=== PATIENT | male | born 1950 | race Two or more races ===

== ENCOUNTER 2017-02-24 06:45 | Day surgery (SDC) | payer MEDICARE, BC ==
[2017-02-24] MEDS ORDERED: Dextrose 5%-Lactated Ringers 1,000 ML IV SCH (07:30)
[2017-02-24] MEDS ORDERED: fentaNYL 100 MCG/2 ML SDV ONE (07:49)
[2017-02-24] MEDS ORDERED: Propofol 200 MG/20 ML SDV ONE (07:49)
[2017-02-24] MEDS ORDERED: Midazolam 1 MG/ML 2 ML SDV ONE (07:49)
[2017-02-24 10:38] VITALS: BP 122/66
--- NOTE | 2017-03-06 13:38 | OR ---
DATE OF PROCEDURE: 02/24/2017 PREOPERATIVE DIAGNOSIS: Personal history of colon polyps. POSTOPERATIVE DIAGNOSIS: Normal colonoscopic examination. OPERATIVE PROCEDURE: Flexible colonoscopy. ANESTHESIA: IV sedation. INDICATION FOR PROCEDURE: A 66-year-old male presenting for a followup colonoscopy, has personal history of colon polyps and is to undergo a flexible colonoscopy with biopsies and/or polypectomy as indicated. Potential risks including bleeding and perforation were discussed, and the patient wishes to proceed. DETAILS OF PROCEDURE: The patient was taken to the operating room and placed in a left lateral decubitus position. IV sedation was administered, after which the initial digital rectal exam was performed and was unremarkable. Colonoscope was then passed into the rectum with retroflexion revealing uncomplicated hemorrhoidal columns. The scope was then eventually passed to the level of the cecum. The prep was quite good with there only being a small amount of liquid stool present to that level. No abnormalities noted, specifically no areas of diverticulosis. No areas of colitis and no polyps or other signs of neoplasia. The scope was then withdrawn, the above findings reconfirmed, and the procedure concluded. There were no evident complications. Due to the patient's personal history of colon polyps, colonoscopy should be undertaken in 5 years. El Michel MD /[id number]
== END 2017-02-24 10:45 | disposition home or self-care (01) ==
LOC: JP.SDS 06:45
PROVIDERS: ATTEND Surgery
DX: Z12.11 Encounter for screening for malignant neoplasm of colon (principal); Z86.010 Personal history of colon polyps; K21.9 Gastro-esophageal reflux disease without esophagitis; I25.10 Atherosclerotic heart disease of native coronary artery without angina pectoris; E11.22 Type 2 diabetes mellitus with diabetic chronic kidney disease; I12.9 Hypertensive chronic kidney disease with stage 1 through stage 4 chronic kidney disease, or unspecified chronic kidney disease; N18.9 Chronic kidney disease, unspecified; Z88.8 Allergy status to other drugs, medicaments and biological substances; J30.1 Allergic rhinitis due to pollen; Z91.09 Other allergy status, other than to drugs and biological substances
CPT/HCPCS: G0105; J2250; J2704; J3010; J7042

== ENCOUNTER 2019-12-30 18:01 | Emergency (ER) | payer MEDICARE ==
[2019-12-30] MEDS ORDERED: Acetaminophen/oxyCODONE 325-5 MG Tab PO STA (20:09)
[2019-12-30 20:15] VITALS: BP 163/90; PULSE 76
--- NOTE | 2019-12-30 20:16 | EDM.PDOC ---
ED HPI GENERAL MEDICAL PROBLEM - General Chief Complaint: Lower Extremity Injury/Pain Stated Complaint: HAD KNEE SURG MONDAY, IN PAIN Time Seen by Provider: 12/30/19 20:05 Source of Information: Reports: Patient, RN. Denies: Old Records History Limitations: Reports: Other (incomplete records) - History of Present Illness INITIAL COMMENTS - FREE TEXT/NARRATIVE: 69 yo male recently has arthroscopic R knee surgery in [place] by Dr. Rockwell. He is on Bucks for pain relief. Awoke from a nap late in the day today with increased pain and tried to call Dr. Rockwell but they were already gone. He lives here so they came here to the ER. He denies new injury or fever. Is here with his . His lasts Bucks was about 4.5 hrs ago. He has a walker at home and an KENJI wrap, but is not currently wearing the KENJI. He has tolerated Percocet in the past. Is on warfarin so not able to take NSAID's. Onset: Today Onset Date: 12/30/19 Duration: Hour(s):, Constant Location: Reports: Lower Extremity, Right Quality: Reports: Ache Severity: Moderate Improves with: Reports: Rest Worsens with: Reports: Movement Context: Reports: Other (recent surgery for ? meniscal tear) Associated Symptoms: Reports: No Other Symptoms Treatments BIOSTATISTICS DIRECTOR: Reports: Other (see below) (Bucks) Right Knee Pain Score (Numeric/FACES): 5 - Related Data Allergies Allergy/AdvReac Type Severity Reaction Status Date / Time enoxaparin sodium Allergy Cannot Verified 12/30/19 19:51 [From Lovenox] Remember magnesium hydroxide Allergy Cannot Verified 12/30/19 19:51 [From Milk of Magnesia] Remember DIAGNOSTIC X-RAY MATERIALS Allergy Cannot Uncoded 12/30/19 19:51 Remember pollen Allergy Cannot Uncoded 12/30/19 19:51 Remember Home Meds: Home Meds Insulin Glargine,Hum.Rec.Anlog [Lantus Solostar] 35 units SUBCNJ BEDTIME 11/11/12 [History] Metoprolol Tartrate [Lopressor] 25 mg PO BID 11/11/12 [History] Pravastatin Sodium 40 mg PO DAILY 11/11/12 [History] Tacrolimus [Prograf] 2 mg PO BEDTIME 11/11/12 [History] mycophenolate mofetiL [Cellcept] 500 mg PO BID 11/11/12 [History] predniSONE [Prednisone] 7.5 mg PO DAILY 11/11/12 [History] Calcium Carbonate/Vitamin D3 [Calcium 600 + Vit D 400] 200 - 600 mg PO ASDIRECTED 05/08/13 [History] Fish Oil/[place]-3 Fatty Acids [Fish Oil] 3,000 tab PO DAILY 05/08/13 [History] Magnesium Oxide [Magnesium] 800 mg PO TID 05/08/13 [History] Multivitamin [Multi-Vitamin Daily] 1 each PO DAILY 05/08/13 [History] Sulfamethoxazole/Trimethoprim [Bactrim 400-80 MG] 1 tab PO .3X/W 05/10/13 [History] Cholecalciferol (Vitamin D3) [Vitamin D3] 1,000 unit PO BID 02/22/17 [History] Insulin Lispro [HumaLOG] 3 - 5 units SUBCUT ASDIRECTED 02/22/17 [History] Ranitidine [Zantac] 150 mg PO BID 02/22/17 [History] Tacrolimus [Prograf] 1.5 mg PO .AM 02/22/17 [History] Warfarin [Coumadin] 2 mg PO ASDIRECTED 02/22/17 [History] Acetaminophen/HYDROcodone [Bucks 325-5 MG] 1 tab PO Q6H PRN 12/30/19 [History] Past Medical History HEENT History: Reports: Sinusitis Cardiovascular History: Reports: Afib, High Cholesterol, Hypertension, Other (See Below) Other Cardiovascular History: cardiac ablation Respiratory History: Reports: Other (See Below) Other Respiratory History: 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, according to patient Gastrointestinal History: Reports: Colon Polyp, GERD, Pancreatitis Musculoskeletal History: Reports: Fracture, Neck Pain, Chronic Endocrine/Metabolic History: Reports: Diabetes, Type II Hematologic History: Reports: Anticoagulation Therapy Immunologic History: Reports: Solid Organ Transplant Other Oncologic History: small skin cancer cut off on face - Infectious Disease History Infectious Disease History: Reports: Chicken Pox, Measles - Past Surgical History HEENT Surgical History: Reports: Cataract Surgery, Oral Surgery Cardiovascular Surgical History: Reports: None Respiratory Surgical History: Reports: Other (See Below) GI Surgical History: Reports: Cholecystectomy, Colonoscopy Endocrine Surgical History: Reports: None Other Musculoskeletal Surgeries/Procedures:: knee scope Social & Family History - Family History Family Medical History: Noncontributory - Tobacco Use Tobacco Use Status *Q: Never Tobacco User - Caffeine Use Caffeine Use: Reports: Coffee Other Caffeine Use: 4-6 cups a day - Recreational Drug Use Recreational Drug Use: No Review of Systems - Review of Systems Review Of Systems: See Below Constitutional: Reports: No Symptoms Musculoskeletal: Reports: Joint Pain (R knee) Skin: Reports: Bruising, Wound (surgical). Denies: Diaphoresis, Erythema Neurological: Reports: No Symptoms ED EXAM, GENERAL - Physical Exam Exam: See Below Exam Limited By: No Limitations General Appearance: Alert, WD/WN, No Apparent Distress Extremities: Pedal Edema (R knee swollen. Diffuse post-op bruising. No redness or increased warmth. Decreased ROM due to his swelling. ), Limited Range of Motion (due to swelling). No: Normal Inspection, Normal Range of Motion, Non- Tender, No Pedal Edema, Increased Warmth, Redness Neurological: Alert, Oriented, CN II-XII Intact, Normal Cognition, No Motor/Sensory Deficits Psychiatric: Normal Affect, Normal Mood Skin Exam: Warm, Dry, Intact, Normal Color, No Rash Course - Vital Signs Last Recorded V/S: Last Vital Signs Temp 36.6 C 12/30/19 20:14 Pulse 76 12/30/19 20:14 Resp 16 12/30/19 20:14 BP 163/90 H 12/30/19 20:14 Pulse Ox 93 L 12/30/19 20:14 - Orders/Labs/Meds Meds: Medications Discontinued Medications Generic Name Dose Route Start Last Admin Trade Name Aryaq PRN Reason Stop Dose Admin Oxycodone/Acetaminophen 2 tab 12/30/19 20:09 12/30/19 20:20 Percocet 325-5 Mg PO 12/30/19 20:10 2 tab ONETIME STA Administration - Re-Assessments/Exams Free Text/Narrative Re-Assessment/Exam: 12/30/19 20:59 Pain relieved enough that he is able to walk now with a walker in the ER. Departure - Departure Time of Disposition: 21:05 Disposition: Home, Self-Care 01 Condition: Fair Clinical Impression: Postoperative pain of knee - Discharge Information *PRESCRIPTION DRUG MONITORING PROGRAM REVIEWED*: No *COPY OF PRESCRIPTION DRUG MONITORING REPORT IN PATIENT JUSTIN: No Instructions: Acute Knee Pain, Adult, [id number] Referrals: PCP,None [Primary Care Provider] - Forms: ED Department Discharge Additional Instructions: Substitute Percocet for your Bucks until you can see Dr. Rockwell for follow up. Use your walker and KENJI wrap. Ice for comfort Sepsis Event Note (ED) - Focused Exam Vital Signs: Vital Signs Temp Pulse Resp BP Pulse Ox 12/30/19 20:14 36.6 C 76 16 163/90 H 93 L
== END 2019-12-30 21:15 | disposition home or self-care (01) ==
LOC: JP.ED 18:01
DX: G89.18 Other acute postprocedural pain (principal); M25.561 Pain in right knee; I10 Essential (primary) hypertension; I48.91 Unspecified atrial fibrillation; E78.00 Pure hypercholesterolemia, unspecified; K21.9 Gastro-esophageal reflux disease without esophagitis; E11.9 Type 2 diabetes mellitus without complications; Z79.4 Long term (current) use of insulin; Z88.8 Allergy status to other drugs, medicaments and biological substances; Z90.49 Acquired absence of other specified parts of digestive tract; Z79.899 Other long term (current) drug therapy
CPT/HCPCS: 99283; A9270

== ENCOUNTER 2020-01-04 12:59 | Emergency (ER) | payer MEDICARE ==
[2020-01-04 13:34] VITALS: BP 159/85; PULSE 73
--- NOTE | 2020-01-04 13:51 | EDM.PDOC ---
ED HPI GENERAL MEDICAL PROBLEM - General Chief Complaint: Lower Extremity Injury/Pain Stated Complaint: KNEE PAIN HAD KNEE SURGERY 12/27/19 Time Seen by Provider: 01/04/20 13:50 Source of Information: Reports: Patient, Family, RN Notes Reviewed History Limitations: Reports: No Limitations - History of Present Illness INITIAL COMMENTS - FREE TEXT/NARRATIVE: Golden presents today with complaints of ongoing right knee pain status post right knee arthroscopy on 12/27/2019. He states use of oxycodone has not worked well for his pain. He took 10mg of oxycodone at 1130 and 0500 today. His pain is currently 7-8/10. He states he has been in the emergency room and in the clinic due to pain since his procedure. After surgery he was taking hydrocodone, this did not control his pain well, he has since been taking oxycodone 5mg tablets 1-2 tablets as directed. He denies any other injury/trauma to the knee. He denies fever, chills, nausea, vomiting, change in bowel/bladder or other concerns. His is a transplant patient, on terminal block assembler coumadin therapy and not able to take NSAIDs. Right Knee Pain Score (Numeric/FACES): 9 - Related Data Allergies Allergy/AdvReac Type Severity Reaction Status Date / Time enoxaparin sodium Allergy Cannot Verified 01/04/20 13:40 [From Lovenox] Remember magnesium hydroxide Allergy Cannot Verified 01/04/20 13:40 [From Milk of Magnesia] Remember DIAGNOSTIC X-RAY MATERIALS Allergy Cannot Uncoded 01/04/20 13:40 Remember pollen Allergy Cannot Uncoded 01/04/20 13:40 Remember Home Meds: Home Meds Insulin Glargine,Hum.Rec.Anlog [Lantus Solostar] 35 units SUBCNJ BEDTIME 11/11/12 [History] Metoprolol Tartrate [Lopressor] 25 mg PO BID 11/11/12 [History] Pravastatin Sodium 40 mg PO DAILY 11/11/12 [History] Tacrolimus [Prograf] 2 mg PO BEDTIME 11/11/12 [History] mycophenolate mofetiL [Cellcept] 500 mg PO BID 11/11/12 [History] predniSONE [Prednisone] 7.5 mg PO DAILY 11/11/12 [History] Calcium Carbonate/Vitamin D3 [Calcium 600 + Vit D 400] 200 - 600 mg PO ASDIRECTED 05/08/13 [History] Fish Oil/[place]-3 Fatty Acids [Fish Oil] 3,000 tab PO DAILY 05/08/13 [History] Magnesium Oxide [Magnesium] 800 mg PO TID 05/08/13 [History] Multivitamin [Multi-Vitamin Daily] 1 each PO DAILY 05/08/13 [History] Sulfamethoxazole/Trimethoprim [Bactrim 400-80 MG] 1 tab PO .3X/W 05/10/13 [History] Cholecalciferol (Vitamin D3) [Vitamin D3] 1,000 unit PO BID 02/22/17 [History] Insulin Lispro [HumaLOG] 3 - 5 units SUBCUT ASDIRECTED 02/22/17 [History] Tacrolimus [Prograf] 1 mg PO .AM 02/22/17 [History] Warfarin [Coumadin] 2 mg PO ASDIRECTED 02/22/17 [History] Famotidine [Pepcid] 1 tab PO BID 01/04/20 [History] oxyCODONE 1 tab PO Q4HR 01/04/20 [History] Past Medical History HEENT History: Reports: Sinusitis Cardiovascular History: Reports: Afib, High Cholesterol, Hypertension, Other (See Below) Other Cardiovascular History: cardiac ablation Respiratory History: Reports: Other (See Below) Other Respiratory History: 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, according to patient Gastrointestinal History: Reports: Colon Polyp, GERD, Pancreatitis Musculoskeletal History: Reports: Fracture, Neck Pain, Chronic Endocrine/Metabolic History: Reports: Diabetes, Type II Hematologic History: Reports: Anticoagulation Therapy Immunologic History: Reports: Solid Organ Transplant Other Oncologic History: small skin cancer cut off on face - Infectious Disease History Infectious Disease History: Reports: Chicken Pox, Measles - Past Surgical History HEENT Surgical History: Reports: Cataract Surgery, Oral Surgery Cardiovascular Surgical History: Reports: None Respiratory Surgical History: Reports: Other (See Below) GI Surgical History: Reports: Cholecystectomy, Colonoscopy Endocrine Surgical History: Reports: None Other Musculoskeletal Surgeries/Procedures:: knee scope Social & Family History - Family History Family Medical History: Noncontributory - Tobacco Use Tobacco Use Status *Q: Never Tobacco User - Caffeine Use Caffeine Use: Reports: Coffee Other Caffeine Use: 4-6 cups a day Review of Systems - Review of Systems Review Of Systems: See Below Constitutional: Reports: No Symptoms Eyes: Reports: No Symptoms Ears: Reports: No Symptoms Nose: Reports: No Symptoms Mouth/Throat: Reports: No Symptoms Respiratory: Reports: No Symptoms Cardiovascular: Reports: No Symptoms GI/Abdominal: Reports: No Symptoms Genitourinary: Reports: No Symptoms Musculoskeletal: Reports: Leg Pain (right knee pain radiating to right hip st atus post right knee arthroscopy 12/27/2019) Skin: Reports: Bruising. Denies: Cyanosis, Pruritis, Rash, Erythema Neurological: Reports: No Symptoms Psychiatric: Reports: No Symptoms ED EXAM, GENERAL - Physical Exam Exam: See Below Exam Limited By: No Limitations General Appearance: Alert, Mild Distress Head: Atraumatic, Normocephalic Neck: Normal Inspection, Supple, Non-Tender, Full Range of Motion. No: Lymphadenopathy (R), Lymphadenopathy (L) Respiratory/Chest: No Respiratory Distress, Lungs Clear, Normal Breath Sounds, No Accessory Muscle Use, Chest Non-Tender. No: Crackles, Rales, Rhonchi, Wheezing Cardiovascular: Normal Peripheral Pulses, Regular Rate, Rhythm, No Edema, No Gallop, No Murmur, No Rub Peripheral Pulses: 3+: Dorsalis Pedis (L), Dorsalis Pedis (R) Extremities: Normal Capillary Refill, Joint Swelling (right knee edema, ecchymosis), Leg Pain, Limited Range of Motion (due to right knee pain). No: Pedal Edema Neurological: Alert, Oriented, Normal Cognition, Normal Gait, No Motor/Sensory Deficits Psychiatric: Normal Affect, Normal Mood Skin Exam: Warm, Dry, No Rash, Ecchymosis. No: Increased Warmth, Rash Lymphatic: No Adenopathy Course - Vital Signs Last Recorded V/S: Last Vital Signs Temp 36.2 C 01/04/20 13:49 Pulse 73 01/04/20 13:49 Resp 16 01/04/20 13:49 BP 159/85 H 01/04/20 13:49 Pulse Ox 96 01/04/20 13:49 - Orders/Labs/Meds Orders: Active Orders 24 hr Category Date Time Status Femur Min 2V Rt [CR] Stat Exams 01/04/20 14:10 Taken Knee 3V Rt [CR] Stat Exams 01/04/20 14:10 Taken VL Duplex Lwr Ext Veins Ltd Rt [US] Stat Exams 01/04/20 14:11 Taken Labs: Laboratory Tests 01/04/20 01/04/20 01/04/20 Range/Units 14:26 14:26 14:26 WBC 7.9 (4.5-11.0) K/uL RBC 4.34 (4.30-5.90) M/uL Hgb 13.7 (12.0-15.0) g/dL Hct 42.0 (40.0-54.0) % MCV 97 (80-98) fL MCH 32 H (27-31) pg MCHC 33 (32-36) % Plt Count 165 (150-400) K/uL Neut % (Auto) 84 H (36-66) % Lymph % (Auto) 8 L (24-44) % [place] % (Auto) 9 H (2-6) % Eos % (Auto) 0 L (2-4) % Baso % (Auto) 0 (0-1) % PT 30.9 H (9.5-12.0) sec INR 2.89 H (0.80-1.20) APTT 37.3 H (27.0-36.0) sec Sodium 134 L (140-148) mmol/L Potassium 4.1 (3.6-5.2) mmol/L Chloride 98 L (100-108) mmol/L Carbon Dioxide 26 (21-32) mmol/L Anion Gap 14.1 H (5.0-14.0) mmol/L BUN 29 H (7-18) mg/dL Creatinine 1.6 H (0.8-1.3) mg/dL Est Cr Clr Drug Dosing 44.36 mL/min Estimated GFR (MDRD) 43 L (>60) Glucose 170 H (74-106) mg/dL Calcium 8.7 (8.5-10.1) mg/dL Meds: Medications Discontinued Medications Generic Name Dose Route Start Last Admin Trade Name Freq PRN Reason Stop Dose Admin Cyclobenzaprine HCl 10 mg 01/04/20 15:09 01/04/20 15:57 Flexeril PO 01/04/20 15:10 10 mg ONETIME ONE Administration Hydromorphone HCl 1 mg 01/04/20 14:00 01/04/20 14:21 Dilaudid IM 01/04/20 14:01 1 mg ONETIME ONE Administration - Radiology Interpretation Free Text/Narrative:: Right femur and right knee x-rays completed, reviewed and wet read. Noted soft tissues edema, slight displacement of patella due to underlying edema fluid, no fracture findings noted. Radiologist read pending. Patient notified. US notes moderate to large hematoma right knee. No DVT RLE. - Re-Assessments/Exams Free Text/Narrative Re-Assessment/Exam: 01/04/20 Patient assessment discussed with Bianca ZAVALA. We will obtain x-ray, US, labs. Try dilaudid, muscle relaxer for pain. 01/04/20 16:28 US of RLE being done, patient reports pain is better at 5-6/10 after cyclobenzaprine. 01/04/20 16:51 Contacted Bianca ZAVALA, notified of US, x-rays. Patient advised he can be transferred to [facility] for hospital admission and pain control with evaluation per ortho, possible procedure Monday to evacuate clot or he can return home with pain medication, immobilize and compress knee and follow up Monday with [facility] in [place]. Golden would like to go home. Bianca ZAVALA notified. [facility] will contact patient and let him know what time to report on Monday. Patient and his in agreement with plan: Right knee pain status post right knee arthroscopy on 12/27/2019. Noted moderate to large hematoma to anterior aspect of knee with pain per ultrasound. No active signs of infection. Keep dudley wrap on leg for compression with knee immobilizer. No weight bearing to right leg. Use walker for mobility. Ice to knee to help with pain. Take percocet 1 to 2 tabs every 6 hours as needed for pain. Take cyclobenzaprine 10mg by mouth three times a day as needed for pain. May take tylenol in between percocet - making sure not to exceed 4000mg of tylenol in 1 day. Return to the emergency room for uncontrolled pain. Report to the emergency room for fever, chills or any other concerns. Departure - Departure Time of Disposition: 17:22 Disposition: Home, Self-Care 01 Condition: Fair Clinical Impression: Hemarthrosis following procedure, Right knee pain - Discharge Information *PRESCRIPTION DRUG MONITORING PROGRAM REVIEWED*: Yes *COPY OF PRESCRIPTION DRUG MONITORING REPORT IN PATIENT JUSTIN: Yes Instructions: Acute Knee Pain, Adult, [id number] Referrals: Mukul Chen MD [Primary Care Provider] - Forms: ED Department Discharge Additional Instructions: You have been evaluated and treated for right knee pain status post right knee arthroscopy on 12/27/2019. Noted moderate to large hematoma to anterior aspect of knee with pain per ultrasound. No active signs of infection. Keep dudley wrap on leg for compression with knee immobilizer. No weight bearing to right leg. Use walker for mobility. Ice to knee to help with pain. Take percocet 1 to 2 tabs every 6 hours as needed for pain. Take cyclobenzaprine 10mg by mouth three times a day as needed for pain. May take tylenol in between percocet - making sure not to exceed 4000mg of tylenol in 1 day. Return to the emergency room for uncontrolled pain. Bianca rizzo will let you know when to come in to [place] for follow up on Monday. Report to the emergency room for fever, chills or any other concerns. Sepsis Event Note (ED) - Evaluation Sepsis Screening Result: No Definite Risk - Focused Exam Vital Signs: Vital Signs Temp Pulse Resp BP Pulse Ox 01/04/20 13:49 36.2 C 73 16 159/85 H 96 01/04/20 13:31 36.2 C 73 16 159/85 H 96 - My Orders Last 24 Hours: My Active Orders 01/04/20 14:10 Femur Min 2V Rt [CR] Stat Knee 3V Rt [CR] Stat 01/04/20 14:11 VL Duplex Lwr Ext Veins Ltd Rt [US] Stat - Assessment/Plan Last 24 Hours: My Active Orders 01/04/20 14:10 Femur Min 2V Rt [CR] Stat Knee 3V Rt [CR] Stat 01/04/20 14:11 VL Duplex Lwr Ext Veins Ltd Rt [US] Stat Assessment:: Hemarthrosis following procedure, Right knee pain Plan: Patient has been evaluated and treated for right knee pain status post right knee arthroscopy on 12/27/2019. Noted moderate to large hematoma to anterior aspect of knee with pain per ultrasound. No active signs of infection. Keep dudley wrap on leg for compression with knee immobilizer. No weight bearing to right leg. Use walker for mobility. Ice to knee to help with pain. Take percocet 1 to 2 tabs every 6 hours as needed for pain. Take cyclobenzaprine 10mg by mouth three times a day as needed for pain. May take tylenol in between percocet - making sure not to exceed 4000mg of tylenol in 1 day. Return to the emergency room for uncontrolled pain. Bianca rizzo will let you know when to come in to [facility] for follow up on Monday. Report to the emergency room for fever, chills or any other concerns.
[2020-01-04] MEDS ORDERED: HYDROmorphone 1 MG/ML Syringe IM ONE (14:00)
[2020-01-04] MEDS ORDERED: Cyclobenzaprine 10 MG Tab PO ONE (15:09)
--- NOTE | 2020-01-06 09:46 | CR ---
Knee 3V Rt, CLINICAL HISTORY: Pain FINDINGS: No acute fracture or dislocation is noted. There are no osseous lesions. There is patellar spurring. There is a large joint effusion. Impression: Large joint effusion Mild osteoarthritic change Femur Min 2V Rt CLINICAL HISTORY: Pain FINDINGS: There is no acute fracture within the femur. No destructive changes are seen. There are some osteoarthritic changes in the knee and hip. Impression: Mild osteoarthritic changes
--- NOTE | 2020-01-06 09:48 | US ---
VL Duplex Lwr Ext Veins Ltd Rt INDICATION: pain status post knee scope FINDINGS: Ultrasound examination of the lower extremity using Doppler and compressive technique demonstrates that the common femoral, femoral, and popliteal veins are patent, and negative for thrombus. The calf veins were segmentally visualized and are negative where seen. There is a joint effusion at the knee. IMPRESSION: Negative for deep venous thrombosis. Knee joint effusion
== END 2020-01-04 17:40 | disposition home or self-care (01) ==
LOC: JP.ED 12:59
DX: M25.061 Hemarthrosis, right knee (principal); I10 Essential (primary) hypertension; E78.00 Pure hypercholesterolemia, unspecified; I48.91 Unspecified atrial fibrillation; K21.9 Gastro-esophageal reflux disease without esophagitis; Z79.4 Long term (current) use of insulin; Z88.8 Allergy status to other drugs, medicaments and biological substances; Z91.09 Other allergy status, other than to drugs and biological substances; Z79.899 Other long term (current) drug therapy; Z90.49 Acquired absence of other specified parts of digestive tract
CPT/HCPCS: 36415; 73552; 73562; 80048; 85025; 85610; 85730; 93971; 96372; 99284; A9270; J1170

== ENCOUNTER 2023-01-18 00:47 | Emergency (ER) | payer MEDICARE ==
[2023-01-18 01:15] VITALS: BP 118/72; PULSE 96
[2023-01-18 01:18] LABS: BASOPHILS PERCENT AUTO 0.3 % (0.1-1.3); EOSINOPHILS ABSOLUTE AUTO 0.03 K/uL (0.00-0.40); EOSINOPHILS PERCENT AUTO 0.4 % (0.0-5.4); HEMATOCRIT 39.4 % (38.4-49.7); HEMOGLOBIN 13.1 g/dL (12.9-16.9); IMMATURE GRAN ABSOLUTE AUTO 0.03 K/uL (0.00-0.23); IMMATURE GRAN PERCENT AUTO 0.4 % (0.0-0.7); MEAN CORPUSCULAR HEMOGLOBIN 32.3 pg (31.6-35.5); MEAN CORPUSCULAR HGB CONC 33.2 g/dL (31.6-35.5); MONOCYTES PERCENT AUTO 6.3 % (3.3-12.6); NEUTROPHILS ABSOLUTE AUTO 6.96 K/uL (1.0-7.6); NEUTROPHILS PERCENT AUTO 87.6 % (40.0-78.1); PLATELET COUNT,PLT 153 K/uL (130-375); RED BLOOD CELL COUNT 4.06 M/uL (4.14-5.76); WHITE BLOOD CELL COUNT,WBC 7.9 K/uL (3.2-11.0)
[2023-01-18 01:27] LABS: BASOPHILS ABSOLUTE AUTO 0.02 K/uL (0.00-0.10)
[2023-01-18 01:39] LABS: A/G RATIO 0.7 (1.2-2.2); ALANINE AMINOTRANSFERASE,ALT 17 U/L (12-78); ALBUMIN 2.9 g/dL (3.4-5.0); ALKALINE PHOSPHATASE 64 U/L (46-116); ANION GAP 14.5 mmol/L (5.0-14.0); ASPARTATE AMNIOTRANSFERASE,AST 17 U/L (15-37); BILIRUBIN TOTAL 1.6 mg/dL (0.2-1.0); BLOOD UREA NITROGEN,BUN 24 mg/dL (7-18); CALCIUM 8.7 mg/dL (8.5-10.1); CARBON DIOXIDE,CO2 25 mmol/L (21-32); CHLORIDE,CL 99 mmol/L (100-108); CREATININE 1.6 mg/dL (0.8-1.3); EST CRCL DRUG DOSING (CG) 42.46 mL/min; ESTIMATED GFR 45 mL/min (>60); GLUCOSE RANDOM 148 mg/dL (74-106); POTASSIUM,K 4.5 mmol/L (3.6-5.2); PROTEIN TOTAL,TP 7.1 g/dL (6.4-8.2); SODIUM,NA 134 mmol/L (140-148)
[2023-01-18 01:45] LABS: CORONAVIRUS COVID-19 NAA NEGATIVE (NEGATIVE); INFLUENZA A NAA NEGATIVE (NEGATIVE); INFLUENZA B NAA NEGATIVE (NEGATIVE); RESPIRATORY SYNCYTIAL VIR NAA NEGATIVE (NEGATIVE)
== END 2023-01-18 01:59 | disposition home or self-care (01) ==
LOC: JP.ED 00:47
DX: B34.9 Viral infection, unspecified (principal); I10 Essential (primary) hypertension; E78.00 Pure hypercholesterolemia, unspecified; I48.91 Unspecified atrial fibrillation; K21.9 Gastro-esophageal reflux disease without esophagitis; E11.9 Type 2 diabetes mellitus without complications; Z79.01 Long term (current) use of anticoagulants; Z90.49 Acquired absence of other specified parts of digestive tract; Z79.899 Other long term (current) drug therapy; Z79.4 Long term (current) use of insulin; Z88.1 Allergy status to other antibiotic agents; Z88.8 Allergy status to other drugs, medicaments and biological substances; Z91.048 Other nonmedicinal substance allergy status; Z91.041 Radiographic dye allergy status; Z20.822 Contact with and (suspected) exposure to COVID-19
CPT/HCPCS: 0241U; 36415; 71046; 80053; 85025; 86140; 99284

== ENCOUNTER 2025-02-19 09:44 | Emergency (ER) | payer MEDICARE ==
[2025-02-19] MEDS ORDERED: Sodium Chloride 0.9% 10 ML Syringe FLUSH PRN (10:24)
[2025-02-19] MEDS ORDERED: METHYLPREDNISOLONE SOD SUCC IV ONE (10:28)
[2025-02-19] MEDS ORDERED: DEXTROSE 5% IV ONE (10:28)
[2025-02-19] MEDS ORDERED: WATER IV ONE (10:28)
[2025-02-19 10:35] LABS: CORONAVIRUS COVID-19 NAA NEGATIVE (NEGATIVE); INFLUENZA A NAA POSITIVE (NEGATIVE); INFLUENZA B NAA NEGATIVE (NEGATIVE); RESPIRATORY SYNCYTIAL VIR NAA NEGATIVE (NEGATIVE)
[2025-02-19 10:37] LABS: PLATELET COUNT,PLT 115 K/uL (130-375); RED BLOOD CELL COUNT 4.94 M/uL (4.14-5.76); WHITE BLOOD CELL COUNT,WBC 7.3 K/uL (3.2-11.0)
[2025-02-19 10:55] LABS: A/G RATIO 0.7 (1.2-2.2); ALANINE AMINOTRANSFERASE,ALT 43 U/L (12-78); ASPARTATE AMNIOTRANSFERASE,AST 45 U/L (15-37); BILIRUBIN TOTAL 1.0 mg/dL (0.2-1.0); BLOOD UREA NITROGEN,BUN 37 mg/dL (7-18); CARBON DIOXIDE,CO2 29 mmol/L (21-32); CHLORIDE,CL 99 mmol/L (100-108); CREATININE 2.1 mg/dL (0.8-1.3); EST CRCL DRUG DOSING (CG) 31.38 mL/min; ESTIMATED GFR 32 mL/min (>60); GLUCOSE RANDOM 160 mg/dL (74-106); POTASSIUM,K 4.2 mmol/L (3.6-5.2); PROTEIN TOTAL,TP 7.6 g/dL (6.4-8.2); SODIUM,NA 137 mmol/L (140-148)
[2025-02-19 10:59] LABS: LACTIC ACID < 0.3 mmol/L (0.4-2.0)
[2025-02-19 11:02] LABS: BASE EXCESS VENOUS 3.9 mm/L; BICARBONATE,VENOUS 28.7 mmol/L; O2 SATURATION VENOUS 39.1; OXYHEMOGLOBIN 37.9 %; PCO2 VENOUS 45.8 mm/Hg; PH,VENOUS 7.414 (7.350-7.450); TOTAL HEMOGLOBIN 14.8 g/dL (13.5-18.0)
[2025-02-19 11:05] LABS: PO2 VENOUS 25.6 mm/Hg
[2025-02-19] MEDS ORDERED: Magnesium Sulfate (4.06 MEQ/ML) 5 GM/10 ML SDV IV STA (11:06)
[2025-02-19 11:12] LABS: INR 8.5
[2025-02-19 11:22] LABS: BAND ABSOLUTE MAN 0.22 K/uL; BAND PERCENT MAN 3 % (5-11); LYMPHOCYTES ABSOLUTE MAN 1.24 K/uL (0.8-3.3); LYMPHOCYTES PERCENT MAN 17 % (24-44); MONOCYTES ABSOLUTE MAN 0.66 K/uL (0.20-0.90); MONOCYTES PERCENT MAN 9 % (2-6); NEUTROPHILS ABSOLUTE MAN 5.18 K/uL (1.0-7.6); SEG NEUTROPHILS PERCENT MAN 71 % (36-66)
[2025-02-19] MEDS ORDERED: Magnesium Sulfate 2 GM/50 mL 2 GM in Premix Bag 1 BAG IV SCH (11:30)
[2025-02-19] MEDS: methylPREDNISolone Sodium Succinate 40 MG/1 ML SDV IVPUSH ONE (11:42)
[2025-02-19] MEDS: Magnesium Sulfate 2 GM/50 mL 2 GM in Premix Bag 1 BAG IV SCH (11:42)
[2025-02-19 13:52] LABS: APPEARANCE,URINE CLEAR (CLEAR); GLUCOSE,URINE NEGATIVE (NEGATIVE); OCCULT BLOOD,URINE NEGATIVE (NEGATIVE)
[2025-02-19 14:03] LABS: SQUAMOUS EPITHELIAL CELLS,UR NOT SEEN /HPF; UROTHELIAL CELLS,URINE NOT SEEN /HPF
[2025-02-19 14:19] VITALS: BP 126/71; PULSE 74
== END 2025-02-19 14:59 | disposition home or self-care (01) ==
LOC: JP.ED 09:44
DX: J10.1 Influenza due to other identified influenza virus with other respiratory manifestations (principal); I12.9 Hypertensive chronic kidney disease with stage 1 through stage 4 chronic kidney disease, or unspecified chronic kidney disease; N18.9 Chronic kidney disease, unspecified; E78.00 Pure hypercholesterolemia, unspecified; E11.9 Type 2 diabetes mellitus without complications; Z88.8 Allergy status to other drugs, medicaments and biological substances; Z91.09 Other allergy status, other than to drugs and biological substances; Z79.4 Long term (current) use of insulin; Z79.01 Long term (current) use of anticoagulants; Z79.899 Other long term (current) drug therapy; Z90.49 Acquired absence of other specified parts of digestive tract; Z87.891 Personal history of nicotine dependence
CPT/HCPCS: 36415; 71046; 71046-26; 71250; 71250-26; 80053; 81001; 82803; 83605; 83735; 84145; 84484; 85025; 85610; 86140; 87040; 87102; 87637; 93005; 93010; 94640; 96361; 96365; 96366; 96375; 99284; 99285-25; A9270-GY; J2919; J3475; J7030